=== PATIENT | female | born 1975 | race African-American/Black ===

== ENCOUNTER 2023-10-14 12:11 | Emergency (ER) | payer MEDICAID ==
[~2023-10-14] VITALS: Ht 165.1 cm; Wt 90.0 kg
[2023-10-14 12:15] VITALS: O2SAT 100
[2023-10-14 13:45] LABS: HCG SCREEN NEGATIVE
[2023-10-14] MEDS: KETOROLAC 15MG/ML VIAL IM ONE (14:00)
[2023-10-14 17:13] VITALS: BP 132/87; PULSE 85; RESP 16; TEMP 98.3
== END 2023-10-14 17:13 | disposition home or self-care (01) ==
LOC: ER 12:43
DX: R51.9 Headache, unspecified (principal); Z98.890 Other specified postprocedural states; Y08.89XA Assault by other specified means, initial encounter; Y93.89 Activity, other specified; Y92.89 Other specified places as the place of occurrence of the external cause; Y99.8 Other external cause status
CPT/HCPCS: 84703; 71045; 70450; 72125; 96372; 99285; J1885; Z7610